=== PATIENT | female | born 1975 | race Caucasian/White ===

== ENCOUNTER 2017-08-31 12:27 | Emergency (ER) | payer MEDICAID ==
[~2017-08-31] VITALS: Ht 154.9 cm; Wt 59.0 kg
[~2017-08-31 12:27] MED LIST: CARISOPRODOL 3350 MG PO; DOXYCYCLINE 10100 M2 PO; FLEXERIL PO; HYDROCODONE-AP1 EAC6 PO; IBUPROFEN 800800 MG PO; KEFLEX500 MG PO; MONONESSA1 EACH PO; NORCO 5-325 TA1 EACH PO; ROBAXIN500 MG PO; VENLAFAXIN75 MG/1 T2 PO; VITAMIN D 5050000 I1 PO; ZOFRAN ODT4 MG PO
[2017-08-31] MEDS ORDERED: FLAGYL500 MG PO (13:53)
[2017-08-31 13:58] VITALS: BP 106/59
[2017-08-31 14:03] LABS: URINE BILIRUBIN NEGATIVE (Negative); URINE BLOOD 2+ (Negative); URINE CLARITY SL CLOUDY; URINE COLOR YELLOW; URINE GLUCOSE-RANDOM NEGATIVE (Negative); URINE KETONES NEGATIVE (Negative); URINE NITRITE-REFLEX NEGATIVE (Negative); URINE PROTEIN NEGATIVE (Negative); URINE SPECIFIC GRAVITY <= 1.005 (1.005-1.030); URINE UROBILINOGEN 0.2 E.U./dl (0.2-1.0)
[2017-08-31 14:04] LABS: URINE LEUKOCYTES-REFLEX 3+ (Negative)
[2017-08-31 14:17] LABS: CASTS None Seen /LPF (None Seen); CRYSTALS None Seen /LPF (None Seen); MUCUS 0-3 Light strn/LPF (None Seen); SQUAMOUS >10 Many /LPF (0-3); URINE RBC >20 Many /HPF (0-2)
[2017-08-31 14:18] LABS: URINE WBC-REFLEX 6-15 Few /HPF (0-5)
== END 2017-08-31 13:59 | disposition home or self-care (01) ==
LOC: M.ERS 12:27
PROVIDERS: Nurse Practitioner Family
DX: N72 Inflammatory disease of cervix uteri (principal); N76.0 Acute vaginitis; B96.89 Other specified bacterial agents as the cause of diseases classified elsewhere; F32.9 Major depressive disorder, single episode, unspecified; F43.10 Post-traumatic stress disorder, unspecified; M79.7 Fibromyalgia

== ENCOUNTER 2017-11-28 17:24 | Emergency (ER) | payer MEDICAID ==
[~2017-11-28] VITALS: Ht 160 cm; Wt 63.5 kg
[~2017-11-28 17:24] MED LIST changes: +FLAGYL500 MG PO
[2017-11-28] MEDS ORDERED: PAXIL10 MG PO (17:36)
[2017-11-28] MEDS ORDERED: TOPAMAX 25 MG T25 M1 PO (17:36)
[2017-11-28] MEDS ORDERED: IBUPROFEN 600600 M1 PO (18:12)
[2017-11-28] MEDS ORDERED: HYDROCODONE-AP1 EAC6 PO (18:12)
[2017-11-28 18:45] VITALS: BP 126/72
== END 2017-11-28 18:47 | disposition home or self-care (01) ==
LOC: M.ERS 17:24
DX: M79.641 Pain in right hand (principal); F32.9 Major depressive disorder, single episode, unspecified; F43.10 Post-traumatic stress disorder, unspecified; M79.7 Fibromyalgia

== ENCOUNTER 2017-12-08 20:23 | Emergency (ER) | payer MEDICAID ==
[~2017-12-08] VITALS: Ht 160 cm; Wt 68.0 kg
[~2017-12-08 20:23] MED LIST changes: +IBUPROFEN 600600 M1 PO; +PAXIL10 MG PO; +TOPAMAX 25 MG T25 M1 PO
[2017-12-08] MEDS ORDERED: HYDROCODONE-AP1 EAC6 PO (20:53)
[2017-12-08 21:10] VITALS: BP 133/70
== END 2017-12-08 21:13 | disposition home or self-care (01) ==
LOC: M.ERS 20:23
DX: M79.644 Pain in right finger(s) (principal); M79.7 Fibromyalgia; F32.9 Major depressive disorder, single episode, unspecified